=== PATIENT | female | born 1995 | race Two or more races ===

== ENCOUNTER 2018-03-11 12:44 | Inpatient (IN) | payer MEDICAID ==
[2018-03-11 16:01] LABS: RUPTURE FETAL MEMBRANES POSITIVE (NEGATIVE)
[2018-03-11] MEDS ORDERED: LIDOCAINE 1% (MPF) 30 ML INJ INJ (17:00)
[2018-03-11] MEDS ORDERED: BUTORPHANOL 1 MG INJ IV (17:00)
[2018-03-11] MEDS ORDERED: OXYTOCIN 30 UNITS/LR 500 ML IV ×2 (17:00)
[2018-03-11] MEDS ORDERED: MISOPROSTOL 200 MCG TAB PR (17:00)
[2018-03-11] MEDS ORDERED: CARBOPROST 250 MCG INJ IM (17:00)
[2018-03-11 17:45] LABS: ADD MAN DIFF? NO
[2018-03-11 17:48] LABS: WHITE BLOOD COUNT 11.7 10^3/ul (4.8-10.8)
[2018-03-11 17:48] LABS: BASOPHILS % 0.3 % (0.0-2.0); EOSINOPHILS % 0.3 % (0.0-7.0); HEMATOCRIT 35.7 % (37.0-47.0); HEMOGLOBIN 12.6 g/dl (12.0-16.0); LYMPHOCYTES # 2.6 10^3/ul (0.8-2.9); LYMPHOCYTES % 22.5 % (15.0-51.0); MEAN CORPUSCULAR HEMOGLOBIN 29.3 pg (29.0-33.0); MEAN CORPUSCULAR HGB CONC 35.3 g/dl (32.0-37.0); MEAN PLATELET VOLUME 11.3 fl (7.4-10.4); MONOCYTE # 0.9 10^3/ul (0.3-0.9); MONOCYTES % 7.3 % (0.0-11.0); NEUTROPHIL # 8.1 10^3/ul (1.6-7.5); NEUTROPHILS % 69.3 % (39.0-77.0); PLATELET COUNT 226 10^3/UL (140-415)
[2018-03-11 18:08] LABS: INR 0.87; PROTIME 11.9 Sec (11.9-14.9); PT RATIO 0.9
[2018-03-11 18:09] LABS: PARTIAL THROMBOPLASTIN TIME 26.9 Sec (25.0-35.0)
[2018-03-11 18:39] LABS: HEPATITIS B SURFACE ANTIGEN NEGATIVE (NEGATIVE)
[2018-03-11] MEDS ORDERED: DINOPROSTONE 10 MG VAG SUPP VAG (20:00)
[2018-03-11] MEDS: LACTATED RINGER'S 1,000 ML IV* (20:11)
[2018-03-11] MEDS: AMPICILLIN 2 GM/NS (PMX) 100 ML IV (21:05)
[2018-03-11] MEDS: OXYTOCIN 30 UNITS/LR 500 ML IV (21:12)
[2018-03-12] MEDS: AMPICILLIN 1 GM/NS (PMX) 50 ML IV ×3 (00:49→09:16)
[2018-03-12] MEDS: LACTATED RINGER'S 1,000 ML IV* ×3 (00:57→08:27)
[2018-03-12] MEDS ORDERED: FENTAnyl 2MCG/ML-ROPIV 0.2% 100 ML (01:09)
[2018-03-12] MEDS ORDERED: NALOXONE (0.4 MG/ML) INJ IV (02:00)
[2018-03-12] MEDS ORDERED: DIPHENHYDRAMINE 50 MG INJ IV (02:00)
[2018-03-12] MEDS: ONDANSETRON 4 MG INJ IV ×2 (05:27→10:21)
[2018-03-12] MEDS: FENTAnyl 2MCG/ML-ROPIV 0.2% 100 ML BAG EPI (08:27)
[2018-03-12] MEDS: METHYLERGONOVINE 0.2 MG INJ IM (09:49)
[2018-03-12] MEDS: OXYTOCIN 30 UNITS/LR 500 ML IV ×2 (10:15→14:46)
[2018-03-12] MEDS ORDERED: OXYCODONE/ASPIRIN (4.88/325) TAB PO ×2 (12:00)
[2018-03-12] MEDS ORDERED: ACETAMINOPHEN 325 MG TAB PO (12:00)
[2018-03-12] MEDS ORDERED: HYDROCODONE/APAP (5/325) TAB PO ×2 (12:00)
[2018-03-12] MEDS ORDERED: ONDANSETRON 4 MG INJ IV (12:00)
[2018-03-12] MEDS: BENZOCAINE 20% 56 ML SPRAY TOP (13:16)
[2018-03-12] MEDS: WITCH HAZEL/GLYCERIN PAD PR (13:16)
[2018-03-12] MEDS: IBUPROFEN 600 MG TAB PO ×3 (13:16→23:24)
[2018-03-12] MEDS: DIBUCAINE 1% 30 GM OINT PR (13:17)
[2018-03-12] MEDS: LANOLIN 7 GM TUBE TOP (13:17)
[2018-03-12] MEDS: SENNA/DOCUSATE NA (8.6MG/50MG) TAB PO (20:59)
[2018-03-12 21:46] LABS: RAPID PLASMA REAGIN NONREACTIVE (NR)
[2018-03-13] MEDS: IBUPROFEN 600 MG TAB PO ×3 (05:32→17:57)
[2018-03-13] MEDS: SENNA/DOCUSATE NA (8.6MG/50MG) TAB PO ×2 (09:05→21:00)
[2018-03-13 09:21] LABS: ADD MAN DIFF? NO
[2018-03-13 09:29] LABS: WHITE BLOOD COUNT 11.6 10^3/ul (4.8-10.8)
[2018-03-13 09:29] LABS: BASOPHILS % 0.3 % (0.0-2.0); EOSINOPHILS # 0.1 10^3/ul (0.0-0.5); EOSINOPHILS % 0.8 % (0.0-7.0); HEMATOCRIT 31.5 % (37.0-47.0); HEMOGLOBIN 11.1 g/dl (12.0-16.0); LYMPHOCYTES # 2.5 10^3/ul (0.8-2.9); LYMPHOCYTES % 21.8 % (15.0-51.0); MEAN CORPUSCULAR HEMOGLOBIN 30.6 pg (29.0-33.0); MEAN CORPUSCULAR HGB CONC 35.2 g/dl (32.0-37.0); MEAN CORPUSCULAR VOLUME 86.8 fl (82.0-101.0); MEAN PLATELET VOLUME 11.5 fl (7.4-10.4); MONOCYTE # 0.9 10^3/ul (0.3-0.9); MONOCYTES % 7.7 % (0.0-11.0); NEUTROPHILS % 68.9 % (39.0-77.0); PLATELET COUNT 194 10^3/UL (140-415); RED BLOOD COUNT 3.63 10^6/ul (4.20-5.40); RED CELL DISTRIBUTION WIDTH 15.3 % (11.5-14.5)
[2018-03-14] MEDS: IBUPROFEN 600 MG TAB PO ×3 (00:16→12:00)
[2018-03-14] MEDS: SENNA/DOCUSATE NA (8.6MG/50MG) TAB PO (09:00)
[2018-03-14] MEDS: MEASLES,MUMPS,RUBELLA VACCINE INJ SC* (09:00)
== END 2018-03-14 13:40 | disposition home or self-care (01) | DRG 775 ==
LOC: OBT 12:44 → PP1 03-12 11:14 → L-D 12:44 → OBT 16:05 → L-D 16:05
PROVIDERS: Obstetrics & Gynecology
PROC: 10E0XZZ Delivery of Products of Conception, External Approach (ICD-10-PCS; principal; 2018-03-12)
PROC: 0HQ9XZZ Repair Perineum Skin, External Approach (ICD-10-PCS; 2018-03-12)
PROC: 3E033VJ Introduction of Other Hormone into Peripheral Vein, Percutaneous Approach (ICD-10-PCS; 2018-03-12)
DX: O48.0 Post-term pregnancy (principal); Z3A.41 41 weeks gestation of pregnancy; O70.0 First degree perineal laceration during delivery; Z37.0 Single live birth
CPT/HCPCS: 62319; 76815; 76818; 84112; 85025; 85610; 85730; 86592; 86850; 86900; 86901; 87340